=== PATIENT | male | born 1945 | race Two or more races ===

== ENCOUNTER 2023-05-22 07:56 | Emergency (ER) | payer OTHER, MEDICAID ==
[~2023-05-22] VITALS: Ht 175.3 cm; Wt 70.0 kg
[~2023-05-22 07:56] MED LIST: AMLO1TAB23 PO; HYDR50TA47 PO; METO-289 PO; MIRT-94 PO; SEVE800T8 PO; TERA10CA36 PO
[2023-05-22 11:19] LABS: Eosinophils # (auto) 0.2 10 ^3/uL (0-0.8); Hemoglobin 8.4 g/dL (13.5-17.5); Lymphocytes # (auto) 1.1 10 ^3/uL (0.4-5.4); Monocytes # (auto) 0.5 10 ^3/uL (0-1.3); Red Cell Distribution Width 17.9 % (11.8-14.3)
[2023-05-22 11:22] LABS: Basophils # (auto) 0.1 10 ^3/uL (0-0.2); Basophils % (auto) 1.2 % (0.0-2.0); Hematocrit 25.3 % (41.0-53.0); Lymphocytes % (auto) 19.1 % (10.0-50.0); Mean Corpuscular Hemoglobin 30.8 pg (28.0-32.0); Mean Corpuscular Hgb Conc. 33.2 g/dL (32.0-36.0); Mean Corpuscular Volume 92.7 fL (80.0-100.0); Monocytes % (auto) 8.6 % (0.0-12.0); Neutrophils # (auto) 4.1 10 ^3/uL (1.6-8.6); Neutrophils % (auto) 68.1 % (37.0-80.0); Nucleated Red Blood Cells % 0.1 %; Red Blood Cells 2.73 10^6/uL (4.5-5.90)
[2023-05-22 11:36] LABS: Chloride 96 mmol/L (98-107); Potassium 4.4 mmol/L (3.5-5.1); Sodium 134 mmol/L (136-145)
[2023-05-22 11:37] LABS: Anion Gap 5 (5-15); Carbon Dioxide 33 mmol/L (20-30)
[2023-05-22 11:38] LABS: Calcium 8.6 mg/dL (8.5-10.1)
[2023-05-22 11:42] LABS: Glucose 88 mg/dL (74-106)
[2023-05-22 11:43] LABS: BUN/Creatinine Ratio 4.8 (10.0-20.0); Blood Urea Nitrogen 28 mg/dL (9-23)
[2023-05-22] MEDS: ENOXAPARIN SOD 100 MG/1 ML SYRINGE SC ONE (12:40)
[2023-05-22 17:08] VITALS: BP 173/73; PULSE 66; RESP 18; TEMP 98.4; O2SAT 93
== END 2023-05-22 17:32 | disposition short-term general hospital (02) ==
LOC: EDUNIT# 07:56 → ER 07:56 → EDBD 07:56 → ER 17:32
DX: I82.A11 Acute embolism and thrombosis of right axillary vein (principal); I12.0 Hypertensive chronic kidney disease with stage 5 chronic kidney disease or end stage renal disease; N18.6 End stage renal disease; D64.9 Anemia, unspecified; F03.90 Unspecified dementia, unspecified severity, without behavioral disturbance, psychotic disturbance, mood disturbance, and anxiety; K21.9 Gastro-esophageal reflux disease without esophagitis; Z79.899 Other long term (current) drug therapy
CPT/HCPCS: 36415; 70450; 73070; 80048; 83605; 85025; 87040; 93005; 93971; 96372; 99285; J1650